=== PATIENT | female | born 1965 | race Caucasian/White ===

== ENCOUNTER 2024-11-26 22:08 | Emergency (ER) | payer OTHER ==
[2024-11-26 22:17] VITALS: BP 110/51; PULSE 137
[2024-11-26] MEDS: Acetaminophen 325 MG Tab PO ONE (23:09)
[2024-11-26] MEDS: HYDROmorphone 1 MG/ML Syringe IVPUSH ONE (23:11)
[2024-11-26 23:37] LABS: HEMOGLOBIN 8.3 g/dL (12.0-16.0); MEAN CORPUSCULAR HEMOGLOBIN 28.6 pg (27.0-34.0); MEAN CORPUSCULAR HGB CONC 30.7 g/dL (33.0-35.0); MEAN CORPUSCULAR VOLUME 93.1 fL (80-100); PLATELET COUNT,PLT 171 10^3/uL (150-450); WHITE BLOOD CELL COUNT,WBC 27.8 10^3/uL (5.0-10.0)
[2024-11-26 23:39] LABS: LYMPHOCYTES PERCENT AUTO 1.8 % (20.5-50.1); MONOCYTES PERCENT AUTO 1.9 % (2-8); NEUTROPHILS PERCENT AUTO 96.3 % (42.2-75.2)
[2024-11-26 23:55] LABS: APPEARANCE,URINE SLIGHTLY CLOUDY (CLEAR); BILIRUBIN,URINE LARGE (NEGATIVE); COLOR,URINE DARK YELLOW (YELLOW); GLUCOSE,URINE NEGATIVE (NEGATIVE); KETONES,URINE NEGATIVE (NEGATIVE); LEUKOCYTE ESTERASE,URINE NEGATIVE (NEGATIVE); NITRITE,URINE NEGATIVE (NEGATIVE); OCCULT BLOOD,URINE NEGATIVE (NEGATIVE); PH,URINE 5.5 (5.0-9.0); PROTEIN,URINE 100 (NEGATIVE); UROBILINOGEN,URINE 0.2 mg/dL (0.2-1.0)
[2024-11-27] LABS: SEG NEUTROPHILS PERCENT MAN 100 % (42-75)
[2024-11-27 00:02] LABS: A/G RATIO 0.35; ALANINE AMINOTRANSFERASE,ALT 10 U/L (14-59); ALBUMIN 1.8 g/dL (3.4-5.0); ALKALINE PHOSPHATASE 235 U/L (46-116); ANION GAP 21.2 mEq/L (7-13); ASPARTATE AMNIOTRANSFERASE,AST 30 U/L (15-37); BILIRUBIN TOTAL 5.9 mg/dL (0.2-1.0); BLOOD UREA NITROGEN,BUN 23 mg/dL (7-18); BUN/CREATININE RATIO 14.6 (No establ ref range); CALCIUM 8.7 mg/dL (8.5-10.1); CARBON DIOXIDE,CO2 16 mmol/L (21-32); CHLORIDE,CL 100 mmol/L (98-107); CREATININE 1.58 mg/dL (0.55-1.02); INR 1.9 (0.9-1.2); MAGNESIUM 1.6 mg/dL (1.8-2.4); POTASSIUM,K 6.2 mmol/L (3.5-5.1); PROTHROMBIN TIME 19.2 SEC (9.0-12.0); SODIUM,NA 131 mmol/L (136-145)
[2024-11-27 00:21] LABS: ESTIMATED GFR 38 mL/min (>=60); LACTIC ACID 6.4 mmol/L (0.4-2.0)
[2024-11-27] MEDS ORDERED: Glucose Gel 15 GM in 37.5 GM Tube PO ONE (00:21)
[2024-11-27 00:22] LABS: GLUCOSE RANDOM 38 mg/dL (70-99); PTT,PARTIAL THROMBOPLSTIN TIME 48.4 SEC (22.0-34.0)
[2024-11-27] MEDS: 50% Dextrose in Water 50 ML Syringe IVPUSH ONE (00:26)
[2024-11-27 00:27] LABS: BACTERIA,URINE FEW /HPF (0-FEW/HPF); EPITHELIAL CELLS,URINE FEW /HPF (NOT SEEN); MUCUS,URINE FEW /LPF (NOT SEEN); RBC,URINE 0-5 /HPF (0-5); WBC,URINE 0-5 /HPF (0-5/HPF)
[2024-11-27] MEDS: Sodium Chloride 0.9% 1,000 ML IV ONE (00:48)
[2024-11-27] MEDS: VANCOmycin 1.25 GM in Sodium Chloride 0.9% 250 ML IV ONE (00:48)
[2024-11-27] MEDS: Piperacillin/Tazobactam 4.5 GM in Sodium Chloride 0.9% 100 ML IV ONE (00:49)
[2024-11-27] MEDS ORDERED: fentaNYL 100 MCG/2 ML SDV ONE (02:19)
[2024-11-27] MEDS: fentaNYL 100 MCG/2 ML SDV IVPUSH ONE (02:44)
== END 2024-11-27 02:50 ==
LOC: DL.ED 22:08
DX: A41.9 Sepsis, unspecified organism (principal); R65.20 Severe sepsis without septic shock; J96.01 Acute respiratory failure with hypoxia; N17.9 Acute kidney failure, unspecified; G93.41 Metabolic encephalopathy; E87.20 Acidosis, unspecified; E87.5 Hyperkalemia; E16.2 Hypoglycemia, unspecified; E80.6 Other disorders of bilirubin metabolism; D69.6 Thrombocytopenia, unspecified; C79.9 Secondary malignant neoplasm of unspecified site; C18.7 Malignant neoplasm of sigmoid colon; R79.89 Other specified abnormal findings of blood chemistry; R64 Cachexia; J90 Pleural effusion, not elsewhere classified; R18.0 Malignant ascites; D64.9 Anemia, unspecified; C78.01 Secondary malignant neoplasm of right lung; I95.89 Other hypotension; I10 Essential (primary) hypertension; E78.00 Pure hypercholesterolemia, unspecified; Z88.8 Allergy status to other drugs, medicaments and biological substances; Z79.899 Other long term (current) drug therapy
CPT/HCPCS: 36415; 51702; 80053; 81001; 82947; 83605; 83735; 85025; 85610; 85730; 87040; 87077; 87186; 93005; 93010; 96365; 96367; 96375; 99285; A9270; J1171; J2543; J3010; J3371; J7030